=== PATIENT | male | born 1935 | race Caucasian/White ===

== ENCOUNTER 2022-10-16 08:30 | Emergency (ER) | payer MEDICARE ==
[2022-10-16] VITALS (8 sets, daily range): BP systolic 121–166; BP diastolic 70–90
[~2022-10-16] VITALS: Ht 185.4 cm; Wt 77.0 kg
[2022-10-16 09:10] LABS: ALBUMIN 4.1 g/dL (3.2-5.0); ALKALINE PHOSPHATASE 72 u/l (38-126); ANION GAP 16 (6-22 (CALC)); BILIRUBIN, TOTAL 0.4 mg/dL (0.2-1.3); BUN 14 mg/dL (8-23); BUN/CREATININE RATIO 20 (12-20 (CALC)); CARBON DIOXIDE 26 mmol/l (22-30); CHLORIDE 96 mmol/l (95-108); CREATININE 0.7 mg/dL (0.7-1.3); GFR FOR AFR.AMER. > 60 ML/MIN (>=60 (CALC)); GFR OTHER RACES > 60 ML/MIN (>=60 (CALC)); POTASSIUM 4.2 mmol/l (3.5-5.1); SGOT/AST 26 u/l (19-48); SODIUM 133 mmol/l (137-146); TOTAL PROTEIN 7.2 g/dL (6.3-8.2)
== END 2022-10-16 11:26 | disposition home or self-care (01) ==
LOC: ED 08:30
PROVIDERS: Family Medicine
DX: R13.10 Dysphagia, unspecified (principal)
CPT/HCPCS: Q9967

== ENCOUNTER 2022-11-05 16:59 | Observation (INO) | payer MEDICARE ==
[~2022-11-05] VITALS: Ht 185.4 cm; Wt 70.7 kg
[2022-11-05] VITALS (12 sets, daily range): BP systolic 102–138; BP diastolic 54–74
[2022-11-05 18:13] LABS: BASO% 0.3 % (0-3); EOS% 0.3 % (0-8); IMMATURE GRANULOCYTES 0.3 % (0.0-5.0); LYMPH% 8.6 % (15-41); MEAN CELL VOLUME 91.2 fL CALC (80.0-100.0); MEAN CORPUSCULAR HGB CONC 32.9 g/dL CAL (32.0-36.0); MONO% 1.7 % (2-13); NEUT# 3.2 thou/uL (1.82-7.42); NEUT% 88.8 % (42-76); RED BLOOD COUNT 6.73 mill/uL (4.70-6.10); RED CELL DISTRI WIDTH 16.7 % (11.5-15.5)
[2022-11-05 18:14] LABS: HEMOGLOBIN 20.2 g/dl (14.0-18.0)
[2022-11-05 18:16] LABS: HEMATOCRIT 61.4 % (39.0-50.0)
[2022-11-05 18:22] LABS: ALBUMIN 3.7 g/dL (3.2-5.0); ALKALINE PHOSPHATASE 65 u/l (38-126); ANION GAP 11 (6-22 (CALC)); BILIRUBIN, TOTAL 0.3 mg/dL (0.2-1.3); BUN 21 mg/dL (8-23); BUN/CREATININE RATIO 29 (12-20 (CALC)); CARBON DIOXIDE 25 mmol/l (22-30); CHLORIDE 102 mmol/l (95-108); CREATININE 0.7 mg/dL (0.7-1.3); GFR FOR AFR.AMER. > 60 ML/MIN (>=60 (CALC)); GFR OTHER RACES > 60 ML/MIN (>=60 (CALC)); POTASSIUM 4.5 mmol/l (3.5-5.1); SODIUM 134 mmol/l (137-146); TOTAL PROTEIN 7.7 g/dL (6.3-8.2)
[2022-11-05 18:23] LABS: PROTHROMBIN TIME 10.1 SECONDS (9.0-12.5)
[2022-11-05 18:26] LABS: SGOT/AST 55 u/l (19-48)
[2022-11-05] MEDS ORDERED: ELIQUIS5 MG PO (18:46)
[2022-11-05] MEDS ORDERED: ATORVASTATIN CA40 MG PO (18:50)
[2022-11-05] MEDS ORDERED: PLAVIX75 MG PO (18:51)
[2022-11-05] MEDS ORDERED: TOPROL XL25 MG PO (18:52)
[2022-11-05] MEDS ORDERED: PREDNISONE10 MG PO (18:53)
[2022-11-05] MEDS ORDERED: PYRIDOSTIGM60 MG PO (18:53)
[2022-11-05] MEDS ORDERED: ENTRESTO 24-261 TAB (18:54)
[2022-11-05 20:00] LABS: URINE BILIRUBIN - DIPSTICK NEGATIVE (NEGATIVE); URINE BLOOD DIPSTICK NEGATIVE (NEGATIVE); URINE COLOR YELLOW; URINE GLUCOSE - DIPSTICK NEGATIVE (NEGATIVE); URINE KETONE NEGATIVE (NEGATIVE); URINE LEUK ESTERASE NEGATIVE (NEGATIVE); URINE PH 6.5 (4.5-8.0); URINE PROTEIN - DIPSTICK NEGATIVE (NEG-TRACE); URINE SPECIFIC GRAVITY <=1.005; URINE UROBILINOGEN - DIPSTICK 0.2 E.U./dL (0.2)
[2022-11-05 20:09] LABS: URINE NITRITE - DIPSTICK NEGATIVE (Negative)
[2022-11-06] VITALS: BP 122/58
[2022-11-06 00:31] VITALS: BP 138/68
[2022-11-06 03:42] VITALS: BP 88/49
[2022-11-06 04:31] VITALS: BP 114/71
[2022-11-06 04:46] VITALS: BP 114/71
[2022-11-06 05:14] LABS: BASO% 0.6 % (0-3); EOS% 0.6 % (0-8); IMMATURE GRANULOCYTES 0.2 % (0.0-5.0); MEAN CELL VOLUME 94.3 fL CALC (80.0-100.0); MEAN CORPUSCULAR HGB 30.7 pG CALC (26.0-32.0); MEAN CORPUSCULAR HGB CONC 32.5 g/dL CAL (32.0-36.0); MONO% 8.5 % (2-13); NEUT# 2.96 thou/uL (1.82-7.42); NEUT% 57.1 % (42-76); RED BLOOD COUNT 3.36 mill/uL (4.70-6.10)
[2022-11-06 05:24] LABS: ALKALINE PHOSPHATASE 44 u/l (38-126); ANION GAP 7 (6-22 (CALC)); BILIRUBIN, TOTAL 0.2 mg/dL (0.2-1.3); BUN 17 mg/dL (8-23); BUN/CREATININE RATIO 25 (12-20 (CALC)); CARBON DIOXIDE 28 mmol/l (22-30); CHLORIDE 105 mmol/l (95-108); CREATININE 0.7 mg/dL (0.7-1.3); GFR FOR AFR.AMER. > 60 ML/MIN (>=60 (CALC)); GFR OTHER RACES > 60 ML/MIN (>=60 (CALC)); HEMATOCRIT 31.7 % (39.0-50.0); HEMOGLOBIN 10.3 g/dl (14.0-18.0); MAGNESIUM 2.1 mg/dL (1.6-2.3); POTASSIUM 4.2 mmol/l (3.5-5.1); SGOT/AST 39 u/l (19-48); SODIUM 135 mmol/l (137-146)
[2022-11-06 05:26] LABS: ALBUMIN 2.8 g/dL (3.2-5.0); TOTAL PROTEIN 5.9 g/dL (6.3-8.2)
[2022-11-06 08:22] VITALS: BP 119/72
== END 2022-11-06 19:45 | disposition home or self-care (01) ==
LOC: ED 16:59 → ED-I 18:55 → ED 20:51 → MS2 20:52
PROVIDERS: Family Medicine; ADMIT Internal Medicine; ATTEND Internal Medicine
DX: R42 Dizziness and giddiness (principal); R00.1 Bradycardia, unspecified; H61.23 Impacted cerumen, bilateral; G70.00 Myasthenia gravis without (acute) exacerbation; D75.1 Secondary polycythemia; I25.10 Atherosclerotic heart disease of native coronary artery without angina pectoris; Z95.5 Presence of coronary angioplasty implant and graft; Z89.512 Acquired absence of left leg below knee; Z79.01 Long term (current) use of anticoagulants; Z79.02 Long term (current) use of antithrombotics/antiplatelets
CPT/HCPCS: Q9967